=== PATIENT | female | born 1990 | race African-American/Black ===

== ENCOUNTER 2017-03-30 16:45 | Emergency (ER) | payer MEDICARE, MEDICAID | END 2017-03-30 18:31 | disposition left against medical advice (07) | LOC: ER 18:31 | DX: Z53.21 Procedure and treatment not carried out due to patient leaving prior to being seen by health care provider (principal) ==

== ENCOUNTER 2019-04-11 17:18 | Emergency (ER) | payer MEDICARE, OTHER ==
[~2019-04-11] VITALS: Ht 172.7 cm; Wt 69.0 kg
[2019-04-11] MEDS ORDERED: HYDROCODONE/ACETAMINOPHEN 5/325MG TABLET PO ONE (19:30)
[2019-04-11 20:50] LABS: BASOPHILS % 0.3 % (0.0-2.0); EOSINOPHILS % 1.5 % (0.0-5.0); HEMATOCRIT. 33.4 % (36.0-48.0); HEMOGLOBIN. 11.2 g/dL (12.0-16.0); LYMPHOCYTES % 31.4 % (20.0-50.0); MEAN CORPUSCULAR HEMOGLOBIN 31.3 pg (28.0-32.0); MEAN CORPUSCULAR VOLUME 93.5 fL (81.0-99.0); MEAN PLATELET VOLUME 7.2 fl (7.4-10.4); MONOCYTES % 6.2 % (2.0-8.0); NEUTROPHILS % 60.6 % (40.0-76.0); PLATELET 276 x1000/uL (130-400); RED BLOOD CELL COUNT 3.58 mill/uL (4.2-5.4); RED CELL DISTRIBUTION WIDTH 13.5 % (11.6-14.6)
[2019-04-11 20:51] LABS: CHLORIDE 106 mEq/L (98-107)
[2019-04-11 22:30] VITALS: BP 130/70
[2019-04-11] MEDS ORDERED: IOHEXOL-300 100 ML BOTTLE ONE (22:47)
== END 2019-04-11 22:30 | disposition home or self-care (01) ==
LOC: ER 17:18
DX: S09.90XA Unspecified injury of head, initial encounter (principal); R07.89 Other chest pain; R51 Headache; F20.9 Schizophrenia, unspecified; F31.9 Bipolar disorder, unspecified; R10.30 Lower abdominal pain, unspecified; V49.88XA Car occupant (driver) (passenger) injured in other specified transport accidents, initial encounter; Y93.89 Activity, other specified; Y92.89 Other specified places as the place of occurrence of the external cause; Y99.8 Other external cause status
CPT/HCPCS: 36415; 71046; 74177; 80048; 81025; 85025; 93005; 99284; Q9967